=== PATIENT | male | born 1955 | race Caucasian/White ===

== ENCOUNTER 2016-10-09 22:15 | Emergency (ER) | payer MEDICARE, MEDICAID ==
[~2016-10-09] VITALS: Ht 175.3 cm; Wt 63.6 kg
[2016-10-09 22:15] VITALS: BP 139/92; TEMP 97.7
[~2016-10-09 22:15] MED LIST: CLONAZEPAM1 MG PO; COMPAZINE 110 MG/TAB PO; DILAUDID 4MG TAB4 MG PO; KLONOPIN 1MG1 MG PO; KLOR-CON M2020 MEQ PO; MS CONTIN 115 MG/TAB PO; MS CONTIN 330 MG/TAB PO; MS CONTIN30 MG PO; OXYCODONE10 MG PO; PERCOCET 325 MG1 TA2 PO
[2016-10-09] MEDS ORDERED: SENNA-LAX8.6 MG PO (22:26)
[2016-10-09] MEDS ORDERED: KLONOPIN 1MG1 MG PO (22:26)
[2016-10-09] MEDS ORDERED: PRINZIDE 12.5 M1 TAB PO (22:27)
[2016-10-09] MEDS ORDERED: ALDACTONE50 MG PO (22:28)
[2016-10-09 23:21] LABS: BASO % 0.6 % (0.0-2.0); EOS % 1.1 % (0-4.0); GRAN # 2.4 (1.4-6.5); GRAN % 66.6 % (42.2-75.2); LYMPH # 0.8 (1.2-3.4); LYMPH % 21.2 % (20.0-51.0); MEAN CELL VOLUME 86 fl (80.0-100.0); MEAN CORPUSCULAR HGB CONC 34 g/dl (33.0-37.0); MEAN PLATELET VOLUME 10.4 fl (7.4-10.4); MONO # 0.4 (0.1-0.6); MONO % 9.9 % (1.7-9.3); RED BLOOD COUNT 4.02 M/mm3 (4.20-5.60); REDCELL DISTRIBUTION WIDTH-CV 18.3 % (11.5-14.5); WHITE BLOOD COUNT 3.6 K/mm3 (4.8-10.8)
[2016-10-09 23:39] LABS: HEMATOCRIT 34.7 % (42.0-52.0); HEMOGLOBIN 11.7 g/dl (13.5-18.0); MEAN CORPUSCULAR HEMOGLOBIN 29 pg (27.0-31.0); PLATELET COUNT 60 K/mm3 (130-400)
[2016-10-09 23:53] LABS: ADJUSTED CALCIUM 9.5 mg/dL (8.4-10.2); ALANINE AMINOTRANSFERASE 58 U/L (21-72); ALBUMIN 3.7 gm/dL (3.5-5.0); ALKALINE PHOSPHATASE 118 U/L (50-136); ANION GAP 13 mmol/L (7-16); BILIRUBIN,TOTAL 6.9 mg/dL (0.0-1.0); BLOOD UREA NITROGEN 13 mg/dL (9-20); CALCIUM 9.3 mg/dL (8.4-10.2); CARBON DIOXIDE 27 mmol/L (22-30); CHLORIDE 98 mmol/L (98-107); CREATININE, serum 0.96 mg/dL (0.66-1.25); GLUCOSE 118 mg/dL (74-106); SODIUM 138 mmol/L (137-145); TOTAL PROTEIN 7.6 gm/dL (6.4-8.2)
[2016-10-09 23:57] LABS: ACETAMINOPHEN < 10 ug/mL (10-30); POTASSIUM 2.9 mmol/L (3.4-5.0); SALICYLATE < 1.0 mg/dL
[2016-10-10] MEDS ORDERED: CONSTULOSE 20G/30ML PO (00:14)
[2016-10-10 00:58] VITALS: PULSE 86
== END 2016-10-10 00:58 | disposition home or self-care (01) ==
LOC: COL.ER 22:15
PROVIDERS: Emergency Medicine
DX: K72.90 Hepatic failure, unspecified without coma (principal); E87.6 Hypokalemia; C25.9 Malignant neoplasm of pancreas, unspecified; C22.8 Malignant neoplasm of liver, primary, unspecified as to type; C79.9 Secondary malignant neoplasm of unspecified site; S50.312A Abrasion of left elbow, initial encounter; W19.XXXA Unspecified fall, initial encounter; Y92.414 Local residential or business street as the place of occurrence of the external cause; Z51.5 Encounter for palliative care
CPT/HCPCS: J2060

== ENCOUNTER → 2016-10-12 | Outpatient (REF) ==
[~2016-10-12] MED LIST changes: +ALDACTONE50 MG PO; +CONSTULOSE 20G/30ML PO; +PRINZIDE 12.5 M1 TAB PO; +SENNA-LAX8.6 MG PO
== END ==
LOC: ZLAB.WCH 10:29
DX: Z01.89 Encounter for other specified special examinations (principal)